=== PATIENT | female | born 1970 | race American Indian/Alaskan Native ===

== ENCOUNTER 2017-05-29 22:00 | Emergency (ER) | payer SELFPAY ==
[2017-05-30 00:39] LABS: Basophils % (Auto) 0.4 % (0.0-1.8); Hematocrit 39.5 % (30.3-42.9); Hemoglobin 12.9 gm/dl (10.1-14.3); Mean Corpuscular HGB Conc 33 % (30-34); Mean Corpuscular Hemoglobin 27 pg (28-32); Mean Corpuscular Volume 82 fl (79-97); Platelet Count 310 K/mm3 (140-440); Red Blood Count 4.85 M/mm3 (3.65-5.03); Red Cell Distribution Width 13.3 % (13.2-15.2); White Blood Count 11.3 K/mm3 (4.5-11.0)
[2017-05-30 00:57] LABS: Alanine Aminotransferase 22 units/L (7-56); Albumin 3.7 g/dL (3.9-5); Albumin/Globulin Ratio 0.9 %; Alkaline Phosphatase 72 units/L (35-129); Anion Gap 15 mmol/L; BUN/Creatinine Ratio 16; Blood Urea Nitrogen 11 mg/dL (7-17); Calcium 8.4 mg/dL (8.4-10.2); Carbon Dioxide 26 mmol/L (22-30); Chloride 101.1 mmol/L (98-107); Glucose 126 mg/dL (65-100); Lipase 51 units/L (13-60); Potassium 4.3 mmol/L (3.6-5.0); Sodium 138 mmol/L (137-145); Total Protein 7.9 g/dL (6.3-8.2)
[2017-05-30 02:08] LABS: Bilirubin,Urine NEG (Negative); Blood,Urine NEG (Negative); Ketones,Urine NEG (Negative); Leukocyte Esterase,Urine SM (Negative); Mucus,Urine 1+ /HPF; Nitrite,Urine NEG (Negative); Protein,Urine <15 mg/dL mg/dL (Negative)
--- NOTE | 2017-05-30 07:15 | XRay Report ---
Chest 2 views: History: Cough. Findings: Normal cardiomediastinal silhouette. Trachea is midline. No consolidation, pneumothorax or pleural effusion. Impression: No acute cardiopulmonary findings.
[2017-05-30] MEDS ORDERED: TESSALON PERLES PO ONE (07:17)
[2017-05-30] MEDS ORDERED: DECADRON PO ONE (07:18)
[2017-05-30] MEDS ORDERED: PROTONIX PO ONE (07:18)
--- NOTE | 2017-05-30 07:41 | Emergency Department Report ---
HPI - General Chief Complaint: Abdominal Pain Time Seen by Provider: 05/30/17 07:02 - HPI HPI: This is a 47 year-old female presents to the emergency department with complaint of 5 episodes of nausea and vomiting last night that caused her to see some blood-tinged emesis. The patient ate at [employer] and says she began feeling nauseated and having vomiting shortly afterwards. She currently denies any nausea. The patient also says that she has been having a lingering mixed dry and productive cough and some mornings she will wake up with some blood-tinged sputum. The patient says that her stress level has increased over the past 3 months and she has increased her tobacco smoking from one half pack to a full pack per day. She denies any chest pain, shortness of breath, fever. No recent travel, especially to any areas endemic with tuberculosis. She does not currently have a primary care physician. No sick contacts at home. ED Past Medical Hx - Past Medical History Additional medical history: OVARIAN CYSTS/ FIBROIDS. CARPAL TUNNEL - Social History Smoking Status: Current Every Day Smoker - Medications Home Medications: Home Medications Medication Instructions Recorded Confirmed Last Taken Type Diclofenac [Antonio Hubbard] 75 mg PO Q12H #60 tablet 07/01/15 Unknown Rx Gabapentin 600 mg PO TID 07/01/15 07/01/15 Unknown History HYDROcodone/APAP 10-325 [[place] 1 each PO Q6HR PRN #20 tablet 07/01/15 Unknown Rx 10/325] predniSONE [Deltasone] 20 mg PO BID #10 tab 07/01/15 Unknown Rx traMADol 50 mg PO TID PRN 07/01/15 07/01/15 Unknown History EPINEPHrine (NF) [Epipen (Nf)] 0 mg IM ONCE #1 syringekit 09/16/15 Unknown Rx predniSONE [Deltasone] 20 mg PO QDAY #5 tab 09/16/15 Unknown Rx ALBUTEROL Inhaler [ProAir HFA 2 puff IH QID PRN #1 inhalation 05/30/17 Unknown Rx Inhaler] Benzonatate [Tessalon Perles] 100 mg PO Q8HR PRN #20 capsule 05/30/17 Unknown Rx Omeprazole 20 mg PO QDAY #20 vee. 05/30/17 Unknown Rx Ondansetron [Zofran Odt] 4 mg PO Q8HR PRN #10 tab.rapdis 05/30/17 Unknown Rx ED Review of Systems ROS: Stated complaint: COUGH Other details as noted in HPI Comment: All other systems reviewed and negative Constitutional: denies: chills, fever Eyes: denies: eye pain, eye discharge, vision change ENT: denies: ear pain, throat pain Respiratory: cough, other (occasional hemoptysis). denies: shortness of breath Cardiovascular: denies: chest pain, palpitations Gastrointestinal: nausea, vomiting, hematemesis Genitourinary: denies: urgency, dysuria, discharge Musculoskeletal: denies: back pain, joint swelling, arthralgia Skin: denies: rash, lesions Neurological: denies: headache, weakness, paresthesias Physical Exam - Physical Exam Vital Signs: Vital Signs 05/29/17 05/30/17 05/30/17 23:45 03:01 05:49 Temperature 97.9 F Pulse Rate 94 H 96 H Respiratory 20 12 Rate Blood Pressure 134/86 148/96 115/67 O2 Sat by Pulse 97 99 Oximetry 05/30/17 05/30/17 06:00 06:20 Temperature 98.0 F Pulse Rate 90 Respiratory 18 Rate Blood Pressure 122/84 O2 Sat by Pulse 100 Oximetry ED Course Vital Signs 05/29/17 05/30/17 05/30/17 23:45 03:01 05:49 Temperature 97.9 F Pulse Rate 94 H 96 H Respiratory 20 12 Rate Blood Pressure 134/86 148/96 115/67 O2 Sat by Pulse 97 99 Oximetry 05/30/17 05/30/17 06:00 06:20 Temperature 98.0 F Pulse Rate 90 Respiratory 18 Rate Blood Pressure 122/84 O2 Sat by Pulse 100 Oximetry ED Medical Decision Making - Lab Data Result diagrams: 05/30/17 00:10 05/30/17 00:10 Critical care attestation.: If time is entered above; I have spent that time in minutes in the direct care of this critically ill patient, excluding procedure time. ED Disposition Clinical Impression: Bronchitis, Tobacco abuse Hematemesis Qualifiers: Nausea presence: with nausea Qualified Code(s): K92.0 - Hematemesis Nausea & vomiting Qualifiers: Vomiting type: unspecified Vomiting Intractability: non-intractable Qualified Code(s): R11.2 - Nausea with vomiting, unspecified Disposition: DC-01 TO HOME OR SELFCARE Is pt being admited?: No Condition: Stable Instructions: Acute Bronchitis (ED), Acute Nausea and Vomiting (ED) Additional Instructions: Please follow up with a primary care physician in the next few days. Please try and stop smoking. Return to the emergency Department with any worsening of your symptoms or any acute distress. I have given you a referral for a local operations welder, Dr. Terry, in case that follow-up regarding your nausea and vomiting with some blood tinged vomitus. Prescriptions: ALBUTEROL Inhaler [ProAir HFA Inhaler] 2 puff IH QID PRN #1 inhalation PRN Reason: Shortness Of Breath Benzonatate [Tessalon Perles] 100 mg PO Q8HR PRN #20 capsule PRN Reason: Cough Omeprazole 20 mg PO QDAY #20 tablet. Ondansetron [Zofran Odt] 4 mg PO Q8HR PRN #10 tab.rapdis PRN Reason: Nausea Referrals: PRIMARY CARE, [Primary Care Provider] - 3-5 Days JUWAN TERRY MD [Staff Physician] - 3-5 Days [facility] [Outside] - 3-5 Days [facility] [Outside] - 3-5 Days [facility] [Outside] - 3-5 Days Time of Disposition: 09:45
[2017-05-30 10:07] VITALS: BP 114/63
== END 2017-05-30 10:07 | disposition home or self-care (01) ==
LOC: ED 22:00
DX: J40 Bronchitis, not specified as acute or chronic (principal); K92.0 Hematemesis; F17.210 Nicotine dependence, cigarettes, uncomplicated
CPT/HCPCS: 36415; 71020; 80053; 81001; 81025; 83690; 85025; 99284; J8540